=== PATIENT | female | born 1990 | race American Indian/Alaskan Native ===

== ENCOUNTER 2022-05-06 11:36 | Emergency (ER) | payer SELFPAY ==
[2022-05-06 13:38] LABS: Color,Urine Yellow (Yellow)
[2022-05-06 13:41] LABS: Bacteria,Urine 1+ /HPF (Negative); Mucus,Urine 3+ /HPF
[2022-05-06 13:45] LABS: RBC,Urine > 182.0 /HPF (0.0-6.0); WBC,Urine > 182.0 /HPF (0.0-6.0)
[2022-05-06 13:48] LABS: HCG Qualitative,Urine Negative (Negative)
[2022-05-06] MEDS ORDERED: KETOROLAC 10 MG TAB PO ONE (15:55)
[2022-05-06] MEDS ORDERED: ONDANSETRON 4 MG ODT TAB PO ONE (15:55)
[2022-05-06] MEDS ORDERED: cephALEXin ORAL LIQD 500 MG/10 ML ORAL LIQD PO ONE (15:55)
--- NOTE | 2022-05-06 15:55 | Emergency Department Report ---
ED Female HPI - General Chief complaint: Urogenital-Female Stated complaint: UTI Time Seen by Provider: 05/06/22 15:06 Source: patient Mode of arrival: Ambulatory Limitations: No Limitations - History of Present Illness Initial comments: 32-year-old healthy female presents emergency department with UTI. Patient describes experiencing frequency and burning hesitation and blood post void since Tuesday. Symptoms are worsened by nothing and improves with nothing. Patient has not tried any medications [id number], and She denies flank pain, no abdominal pain, no fever chills, no nausea vomiting, no weakness dizziness headache or vision changes. She denies being , menstrual period was last "early April 2022". - Related Data Previous Rx's Medication Instructions Recorded Last Taken Type Ibuprofen [Motrin 800 MG tab] 800 mg PO Q8HR PRN #20 tablet 05/06/22 Unknown Rx Phenazopyridine [Pyridium] 200 mg PO BID 3 Days #6 tab 05/06/22 Unknown Rx cephALEXin [Keflex] 500 mg PO Q12HR 20 Days #10 cap 05/06/22 Unknown Rx Allergies Allergy/AdvReac Type Severity Reaction Status Date / Time No Known Allergies Allergy Unverified 05/06/22 12:14 ED Review of Systems ROS: Stated complaint: UTI Other details as noted in HPI Constitutional: see HPI Respiratory: denies: cough Cardiovascular: denies: chest pain, palpitations Gastrointestinal: denies: abdominal pain, nausea, diarrhea, constipation Genitourinary: urgency, dysuria, frequency, hematuria. denies: discharge, abnormal menses, dyspareunia Neurological: denies: headache, weakness ED Past Medical Hx - Past Medical History Previous Medical History?: No - Surgical History Past Surgical History?: No - Social History Smoking Status: Never Smoker Substance Use Type: None - Medications Home Medications: Home Medications Medication Instructions Recorded Confirmed Last Taken Type Ibuprofen [Motrin 800 MG tab] 800 mg PO Q8HR PRN #20 tablet 05/06/22 Unknown Rx Phenazopyridine [Pyridium] 200 mg PO BID 3 Days #6 tab 05/06/22 Unknown Rx cephALEXin [Keflex] 500 mg PO Q12HR 20 Days #10 cap 05/06/22 Unknown Rx ED Physical Exam - General Limitations: No Limitations General appearance: alert, in no apparent distress - Head Head exam: Present: atraumatic - Eye Eye exam: Present: normal appearance, PERRL - ENT ENT exam: Present: normal exam, normal orophraynx - Neck Neck exam: Present: normal inspection - Respiratory Respiratory exam: Present: normal lung sounds bilaterally. Absent: respiratory distress - Cardiovascular Cardiovascular Exam: Present: regular rate, normal rhythm - GI/Abdominal GI/Abdominal exam: Present: soft. Absent: distended, tenderness - Extremities Exam Extremities exam: Present: normal inspection, full ROM, normal capillary refill. Absent: tenderness - Back Exam Back exam: Present: normal inspection, full ROM. Absent: CVA tenderness (R), CVA tenderness (L) - Neurological Exam Neurological exam: Present: alert, oriented X3, CN II-XII intact, normal gait. Absent: abnormal gait, motor sensory deficit - Psychiatric Psychiatric exam: Present: normal affect, normal mood - Skin Skin exam: Present: warm, dry, intact, normal color ED Course Vital Signs 05/06/22 05/06/22 12:18 15:18 Temperature 98.6 F 98.6 F Pulse Rate 75 68 Respiratory 18 18 Rate Blood Pressure 121/72 105/74 Blood Pressure 105/74 [Left] O2 Sat by Pulse 100 97 Oximetry ED Medical Decision Making - Lab Data Lab Results 05/06/22 Range/Units 12:27 Urine Color Yellow (Yellow) Urine Turbidity Cloudy (Clear) Specific Jackson (Man) 1.021 (1.003-1.030) Ur Protein (Man) 2+ (Negative) mg/dL Ur Ketones (Man) Negative (Negative) Ur Nitrite (Man) Negative (Negative) Urine Bilirubin (Man) Negative (Negative) Urine Ictotest Not Reportable Leukocyte Esterase (Man) Large (Negative) Urine WBC (Auto) > 182.0 H (0.0-6.0) /HPF Urine RBC (Auto) > 182.0 (0.0-6.0) /HPF U Epithel Cells (Auto) 3.0 (0-13.0) /HPF Urine Bacteria (Auto) 1+ (Negative) /HPF Urine RBC (Manual) 5+ (Negative) Urine Mucus 3+ /HPF Urine HCG, Qual Negative (Negative) - Medical Decision Making 32-year-old healthy female presents emergency department with UTI. Patient describes experiencing frequency and burning hesitation and blood post void since Tuesday. She denies flank pain, no abdominal pain, no fever chills, no nausea vomiting, no weakness dizziness headache or vision changes. She denies being , menstrual period was last "early April Urinalysis is positive for large amount of leukocytes, WBCs, RBCs, coupled with patient's symptoms we will treat for UTI with hematuria. No nausea or vomiting, no flank pain, she is tolerating oral intake ambulating steadily with stable vital signs she is afebrile. Negative test for . Discharge home with Keflex, given a dose of Keflex in the emergency department as well as some pain management including antispasmodic. Patient remained stable nontoxic-appearing, afebrile, ambulating steadily without assistance. Gone over ED findings with patient as well as plan for follow-up. Also discussed return precautions with patient, all questions and concerns addressed. Patient is stable to be discharged follow-up outpatient. Audio voice dictation device used, hence the chart might contain some dictation errors, mispronunciations, wrong spelling and wrong verbiage. Critical care attestation.: If time is entered above; I have spent that time in minutes in the direct care of this critically ill patient, excluding procedure time. ED Disposition Clinical Impression: Urinary tract infection with hematuria, Dysuria Disposition: HOME / SELF CARE / HOMELESS Is pt being admited?: No Does the pt Need Aspirin: No Condition: Stable Instructions: Urinary Tract Infection, Adult Referrals: PRIMARY CAREMD [Primary Care Provider] - 3-5 Days AMIRAH PETERS MD [Staff Physician] - 3-5 Days Forms: Work/School Release Form(ED)
[2022-05-06 16:10] VITALS: BP 118/72
[2022-05-06] MEDS ORDERED: cephALEXin 500 MG CAP PO ONE (17:00)
== END 2022-05-06 16:10 | disposition home or self-care (01) ==
LOC: ED 11:36
DX: N39.0 Urinary tract infection, site not specified (principal); R31.9 Hematuria, unspecified; R30.0 Dysuria
CPT/HCPCS: 81001; 81025; 99283; J3490; Q0162